=== PATIENT | female | born 1980 | race Caucasian/White ===

== ENCOUNTER 2016-10-17 05:28 | Emergency (ER) | payer SELFPAY ==
[2016-10-17 06:01] VITALS: BMI 20.1
[2016-10-17] MEDS ORDERED: ACETAMINOPHEN 325 MG TABLET (FP) ONE (07:34)
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
[2016-10-17] MEDS ORDERED: ACETAMINOPHEN 325 MG TABLET (FP) PO ONE (07:39)
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
[2016-10-17 10:10] VITALS: BP 126/73; PULSE 90; TEMP 97.9
== END 2016-10-17 10:30 | disposition home or self-care (01) ==
LOC: JER 05:28
DX: S00.511A Abrasion of lip, initial encounter (principal); Y04.2XXA Assault by strike against or bumped into by another person, initial encounter; Y93.89 Activity, other specified; Y92.59 Other trade areas as the place of occurrence of the external cause; Y07.03 Male partner, perpetrator of maltreatment and neglect
CPT/HCPCS: 99284-25

== ENCOUNTER 2017-06-09 12:10 | Inpatient (IN) | payer OTHER ==
[2017-06-09] MEDS ORDERED: AMPICILLIN SODIUM 2 GM VIAL ONE (12:53)
[2017-06-09] MEDS: DEXTROSE 5%-LACTATED RINGERS 1,000 ML IV SCH ×2 (13:00→18:29)
[2017-06-09] MEDS ORDERED: AMPICILLIN - 2 GM in SODIUM CHLORIDE 100 ML IVPB ONE (13:00)
[2017-06-09 13:23] VITALS: BMI 21.0
[2017-06-09 14:16] LABS: BASO % 0.2 % (0-2.0); EOS % 0.7 % (0-4.5); HEMOGLOBIN 9.5 GM/dL (10.7-15.3); LYMPH % 6.5 % (8-40); MCH 26.4 pg (25.7-33.7); MCHC 32.8 g/dl (32.0-36.0); MEAN CELL VOLUME 80.5 fl (80-96); MEAN PLT VOLUME 9.4 fl (7.5-11.1); MONO % 4.9 % (3.8-10.2); NEUT % 87.7 % (42.8-82.8); PLATELET COUNT 217 K/MM3 (134-434); RDW 13.2 % (11.6-15.6); WHITE BLOOD COUNT 13.8 K/mm3 (4.0-10.0)
--- NOTE | 2017-06-09 14:26 | HP ---
Past Medical History - Primary Care Physician PCP:: Isabell Hernández - Admission Chief Complaint: 37 Yrs , 35 weeks gestation admitted , due to SPROM since 7.00PM 06/08/17 .. no c/o onset of any labor pains. Pt is drop in History of Present Illness: [facility] in [place] . pt came to [place] 2 weeks ago . she states she went to [employer] for interview, she has not been seen by physician . pt has not brought any records with her as per patient, her course was unevemtful Wt gain 8 lbs History Source: Patient, Medical Record Limitations to Obtaining History: No Limitations - Past Medical History CERTIFIED RECREATIONAL THERAPIST: No: Migraine, Seizure Cardiovascular: No: HTN Pulmonary: No: Asthma Gastrointestinal: No: Gastritis, GERD Renal/: Yes: Other (denies) ...: 2 ...Para: 1 (1 12/07/1999 at [facility]) ...Term: 1 ...LMP: 10/01/16 ... Weeks Gestation by Dates: 35.4 ...EDC by Dates: 07/09/17 ...EDC by Sono: 07/11/17 Heme/Onc: Yes: Anemia Infectious Disease: Yes: Other (denies) Psych: Yes: Other (declines any mental disorders) Rheumatology: Yes: Gout, Other - Past Surgical History Past Surgical History: Yes: None Hx Myomectomy: No Hx Transabdominal Cerclage: No - Smoking History Smoking history: Former smoker Have you smoked in the past 12 months: Yes Aproximately how many cigarettes per day: 3 If you are a former smoker, when did you quit?: 3 MONTHS AGO - Alcohol/Substance Use Hx Alcohol Use: No History of Substance Use: reports: None Home Medications - Allergies Allergies/Adverse Reactions: Allergies Allergy/AdvReac Type Severity Reaction Status Date / Time No Known Allergies Allergy Verified 06/09/17 13:02 - Home Medications Home Medications: Ambulatory Orders NK [No Known Home Medication] 10/17/16 Physical Exam - Maternity Vital Signs: Vital Signs Temperature 98.3 F 06/09/17 13:00 Pulse Rate 89 06/09/17 13:00 Respiratory Rate 20 06/09/17 13:00 Blood Pressure 115/68 06/09/17 13:00 O2 Sat by Pulse Oximetry (%) Constitutional: Yes: Well Nourished Eyes: Yes: WNL HENT: Yes: WNL, Normocephalic Neck: Yes: WNL, Trachea Midline Cardiovascular: Yes: WNL, Regular Rate and Rhythm Lungs: Clear to auscultation Breast(s): Yes: WNL - Abdominal Exam/OB Fundal Height: 34 Number of Fetuses: Single Presentation: Vertex (exam at 12.45 PM) Contractions: Yes Regularity: Irregular Intensity: Unaware Monitor Mode: External Heart Rate (range): 155 Heart Rate Location: [facility] Category: I Accelerations: Uniform - Vaginal Exam/OB Vaginal Bleediing: No Speculum Exam: Yes (gross leaking ) Dilatation (cm): close Effacement (%): unefface Amniotic Membrane Status: Ruptured Nitrazine Test: Positive Amniotic Fluid: Yes: Clear Presentation: Vertex/Position Station: -3 - Physical Exam Musculoskeletal: Yes: WNL Extremities: Yes: WNL. No: Calf Tenderness Edema: No Integumentary: Yes: Tattoos Deep Tendon Reflex Grade: Normal +2 ...Motor Strength: WNL Psychiatric: Yes: WNL, Alert, Oriented - Labs Lab Results: CBC, BMP 06/09/17 13:42 Laboratory Tests 06/09/17 06/09/17 06/09/17 13:42 13:42 13:42 PT with INR 10.60 INR 0.94 PTT (Actin FS) 24.6 L Sodium 140 Potassium 4.2 Chloride 107 Carbon Dioxide 25 BUN 8 Creatinine 0.5 L Random Glucose 85 Total Bilirubin 0.2 AST 14 L ALT 15 Alkaline Phosphatase 402 H Total Protein 5.6 L Albumin 2.2 L RPR Titer Nonreactive HIV 1&2 Antibody Screen Negative HIV P24 Antigen Negative Problem List - Problems (1) 35 weeks gestation of Code(s): Z3A.35 - 35 WEEKS GESTATION OF (2) SPROM (prolonged spontaneous rupture of membranes) Code(s): O42.90 - LISSETT ROM, 7TH0 BETW RUPT & ONST LABR, UNSP WEEKS OF GEST (3) with care elsewhere, antepartum Code(s): Z34.90 - ENCNTR FOR SUPRVSN OF NORMAL , UNSP, UNSP TRIMESTER (4) Anemia Code(s): D64.9 - ANEMIA, UNSPECIFIED Qualifiers: Anemia type: iron deficiency Iron deficiency anemia type: inadequate dietary iron intake Qualified Code(s): D50.8 - Other iron deficiency anemias Assessment/Plan 37 yrs ( AMA ) , 35 week s, sprom ( >24 hrs ).drop in , no labor Plan : sono gbs prophylaxis with Iv ampicillin Iv fluids Pitocin Induction/augmentation PRN vaginal delivery trial Sono report : 35.3 weeks ,vx, MELQUIADES 9.1, , EFW 2468 gm =5'7" ( 35 %tile) , BPp4/8 BM-0, FM-0, FT-2, AFV-2
[2017-06-09 14:30] LABS: INR 0.94 (0.82-1.09); PROTHROMBIN TIME (PATIENT) 10.6 SEC (9.98-11.88)
[2017-06-09 14:33] LABS: ACTIVATED PTT 24.6 SECONDS (26.9-34.4)
[2017-06-09 14:39] LABS: ALBUMIN 2.2 g/dl (3.4-5.0); ANION GAP 8 (8-16); BILIRUBIN,TOTAL 0.2 mg/dL (0.2-1.0); BLOOD UREA NITROGEN 8 mg/dL (7-18); CALCIUM 7.8 mg/dL (8.5-10.1); CHLORIDE 107 mmol/L (98-107); CO2 25 mmol/L (21-32); CREATININE 0.5 mg/dL (0.55-1.02); GLUCOSE,RANDOM 85 mg/dL (74-106); POTASSIUM 4.2 mmol/L (3.5-5.1); SGOT/AST 14 U/L (15-37); SGPT/ALT 15 U/L (12-78); SODIUM 140 mmol/L (136-145); TOT PROT 5.6 g/dl (6.4-8.2)
[2017-06-09 14:40] LABS: ALK PHOS 402 U/L (45-117)
[2017-06-09 15:28] LABS: RPR NONREACTIVE (NONREACTIVE)
[2017-06-09] MEDS ORDERED: AMPICILLIN SODIUM 1 GM VIAL ONE ×2 (16:52→20:22)
--- NOTE | 2017-06-09 18:27 | PN ---
Progress Note, Labor Vaginal Exam #1 Labor Exam Date: 06/09/17 Labor Exam Time: 18:20 Heart Rate (range): 170 Dilatation: 1 Effacement (%): 70 Amniotic Membrane Status: Ruptured Presentation: Vertex/Position Station: -1 Remarks: fhr 160-170 , , cat-2 uc 2-3 min pt c/o pain Selected Entries 06/09/17 06/09/17 06/09/17 13:16 16:00 17:00 Temperature 99.3 F 99.8 F H Pulse Rate 89 94 H Blood Pressure 111/76 104/75 Weight 115 lb 6.20 PM Temp 99.5 Vaginal Exam #2 Labor Exam Date: 06/09/17 Labor Exam Time: 19:00 Heart Rate (range): 160 Dilatation: 3 Effacement (%): 80 Amniotic Membrane Status: Ruptured Presentation: Vertex/Position Station: 0 Remarks: variable decel uc 2 min Vaginal Exam #3 Labor Exam Date: 06/09/17 Labor Exam Time: 20:01 Heart Rate (range): 160-170 Dilatation: 6 Effacement (%): 80 Amniotic Membrane Status: Ruptured Presentation: Vertex/Position Station: 0 Remarks: fhr cat-2 , sometimes variable decel uc 1-2 min temp 98.6 pt did not receive stadol & phenrgan, plan epidural labor analgesia Vaginal Exam #4 Labor Exam Date: 06/09/17 Labor Exam Time: 21:20 Heart Rate (range): 170 Dilatation: 9 Effacement (%): 100 Amniotic Membrane Status: Ruptured Presentation: Vertex/Position Station: +2 Remarks: fhr cat-2, variable decel uc 1-2 min pt pushing Selected Entries 06/09/17 18:27 Temperature 99.5 F Pulse Rate 90 Blood Pressure 116/68 Vaginal Exam #5 Labor Exam Date: 06/09/17 Labor Exam Time: 21:30 Heart Rate (range): 170 Dilatation: 10 Effacement (%): 100 Amniotic Membrane Status: Ruptured Presentation: Vertex/Position Station: +2 Remarks: fhr cat-2 uc q 1.2 min pushing
[2017-06-09] MEDS ORDERED: TUBERCULIN PPD 5 TU/0.1ML SYRINGE (IN PATIENT USE ONLY) ID ONE (18:30)
[2017-06-09] MEDS ORDERED: BUTORPHANOL TARTRATE 1 MG/ML VIAL IVPUSH ONE (19:00)
[2017-06-09] MEDS ORDERED: PROMETHAZINE HCL 25 MG/1 ML VIAL IVPUSH ONE (19:00)
[2017-06-09] MEDS ORDERED: ELECTROLYTE-148 SOLN 1,000 ML IV SCH (20:15)
[2017-06-09 20:19] LABS: URINE AMPHETAMINES NEGATIVE ng/ml (CUTOFF=500)
[2017-06-09 20:20] LABS: COCAINE, UR POSITIVE ng/ml (CUTOFF=300); METHADONE, UR NEGATIVE ng/ml (CUTOFF=300); OPIATES, URI NEGATIVE ng/ml (CUTOFF=300); PHENCYCLIDINE,URINE NEGATIVE ng/ml (CUTOFF=25); URINE BARBITURATES NEGATIVE ng/ml (CUTOFF=200); URINE BENZODIAZEPINES NEGATIVE ng/ml (CUTOFF=200)
[2017-06-09] MEDS ORDERED: BUTORPHANOL TARTRATE 1 MG/ML VIAL ONE (20:22)
[2017-06-09] MEDS ORDERED: PROMETHAZINE HCL 25 MG/1 ML VIAL ONE (20:23)
[2017-06-09] MEDS: AMPICILLIN - 1 GM in SODIUM CHLORIDE 100 ML IVPB SCH (20:30)
[2017-06-09] MEDS ORDERED: OXYTOCIN 20 UNITS in 0.9% NS 20 UNIT/1,000 ML INFUS.BAG IV ONE ×2 (21:22→22:32)
[2017-06-09 22:11] LABS: VENOUS PC02 41.7 mmHg (38-52); VENOUS PH 7.31 (7.32-7.42); VENOUS PO2 22.1 mmHg (28-48)
[2017-06-09] MEDS ORDERED: IBUPROFEN 600 MG TABLET (FP) PO PRN (22:35)
[2017-06-09] MEDS ORDERED: ACETAMINOPHEN 325 MG TABLET (FP) PO PRN (22:35)
[2017-06-09] MEDS ORDERED: oxyCODONE HCL 5 MG TABLET PO PRN (22:35)
[2017-06-09] MEDS ORDERED: BISACODYL 10 MG SUPP.RECT RC PRN (22:35)
[2017-06-09] MEDS ORDERED: BENZOCAINE 28 GM HEMORRHOIDAL OINTMENT TP PRN (22:35)
[2017-06-09] MEDS ORDERED: BENZOCAINE 20% 57 GM BOTTLE TP PRN (22:35)
[2017-06-09] MEDS ORDERED: WITCH HAZEL 50% (TUCKS) 40 PAD/JAR PAD TP PRN (22:35)
[2017-06-09] MEDS ORDERED: METHYLERGONOVINE MALEATE 0.2 MG/1 ML AMP IM PRN (22:35)
--- NOTE | 2017-06-09 22:43 | PN ---
Delivery - Delivery Vaginal Delivery: No Problems, Spontaneous (baby delievered in Vx Keller position , immediate suction oral & nasal was done , afluid was meconium stained , cord around neckx1 was noted , untangled before delivery of shoulder . perineum & vagina was intact) Episiotomy/Laceration: None EBL (cc): 300 Delivery, Single - Stages of Labor Date 1st Stage Initiatied: 06/09/17 Time 1st Stage Initiated: 13:00 Date 2nd Stage Initiated: 06/09/17 Time 2nd Stage Initiated: 21:30 Date of Delivery: 06/09/17 Time of Delivery: 21:38 Date Placenta Delivered: 06/09/17 Time Placenta Delivered: 21:42 Placenta: Yes: Spontaneous, Uterine Exploration - Condition of Security Checker/Plaster Whittler Present: Yes Name: Yunior Hamilton Infant Gender: Male Weight: 5 lb 3 oz Position: Left, OA Total Hours ROM (Hrs/Mins): 26hrs 42 min - 1 Minute Total Score: 6 5 Minutes Total Score: 8 - [place] Feeding Plan Initial Plan: Exclusive throughout hospitalization Remarks - Remarks Remarks: 37 yrs ( AMA ) , , drop in , ? pncare in [place], no records presented with [facility], prolonged srom since 06/08/17 7.00 pm pt went into spontaneous labor Iv Ampicillin 3 doses were given for prophylaxis Intrapartum tachycardia 160-170 noted , periodically variable decels stadol 1 mg + phenergan 25 mg ivpb was given once for labor analgesia urine drug screen positive for cocaine Baby was transferred to NICU
[2017-06-09] MEDS ORDERED: OXYTOCIN 20 UNITS in 0.9% NS 20 UNIT/1,000 ML INFUS.BAG IV SCH (22:45)
[2017-06-10] MEDS: AMPICILLIN - 1 GM in SODIUM CHLORIDE 100 ML IVPB SCH ×2 (01:06→05:53)
[2017-06-10 06:07] LABS: HBsAG SCREEN Negative (Negative); RUBELLA IgG ANTIBODY 4.52 index (Immune >0.99)
[2017-06-10 08:03] LABS: HEMATOCRIT 27.5 % (32.4-45.2); HEMOGLOBIN 9.1 GM/dL (10.7-15.3); MCH 26.5 pg (25.7-33.7); MEAN CELL VOLUME 80.3 fl (80-96); MEAN PLT VOLUME 9.7 fl (7.5-11.1); PLATELET COUNT 205 K/MM3 (134-434); RBC 3.42 M/mm3 (3.60-5.2); RDW 12.9 % (11.6-15.6)
--- NOTE | 2017-06-10 08:05 | PN ---
Post Progress Note - Subjective Subjective: c/o cramps Post Day: 1 Type of Delivery: Vital Signs: Vital Signs Temperature 98.6 F 06/10/17 04:00 Pulse Rate 81 06/10/17 04:00 Respiratory Rate 20 06/10/17 04:00 Blood Pressure 104/64 06/10/17 04:00 O2 Sat by Pulse Oximetry (%) 98 06/09/17 22:30 Breast Exam: Yes: Soft. No: Engorged (not BF ) Uterus: Yes: Fundus Firm, Fundus below umbilicus Lochia: Yes: Rubra Lochia, amount: Moderate Extremities: Yes: Calves non-tender Perineum: Yes: Intact Activity: Ambulating - Labs Labs: CBC WBC 13.8 K/mm3 (4.0-10.0) H 06/09/17 13:42 RBC 3.60 M/mm3 (3.60-5.2) 06/09/17 13:42 Hgb 9.5 GM/dL (10.7-15.3) L 06/09/17 13:42 Hct 29.0 % (32.4-45.2) L 06/09/17 13:42 MCV 80.5 fl (80-96) 06/09/17 13:42 MCH 26.4 pg (25.7-33.7) 06/09/17 13:42 MCHC 32.8 g/dl (32.0-36.0) 06/09/17 13:42 RDW 13.2 % (11.6-15.6) 06/09/17 13:42 Plt Count 217 K/MM3 (134-434) 06/09/17 13:42 MPV 9.4 fl (7.5-11.1) 06/09/17 13:42 Neutrophils % 87.7 % (42.8-82.8) H 06/09/17 13:42 Lymphocytes % 6.5 % (8-40) L 06/09/17 13:42 Monocytes % 4.9 % (3.8-10.2) 06/09/17 13:42 Eosinophils % 0.7 % (0-4.5) 06/09/17 13:42 Basophils % 0.2 % (0-2.0) 06/09/17 13:42 Laboratory Tests 06/09/17 19:15 Cocaine Screen Positive Problem List - Problems (1) 35 weeks gestation of Code(s): Z3A.35 - 35 WEEKS GESTATION OF (2) SPROM (prolonged spontaneous rupture of membranes) Code(s): O42.90 - LISSETT ROM, 7TH0 BETW RUPT & ONST LABR, UNSP WEEKS OF GEST (3) with care elsewhere, antepartum Code(s): Z34.90 - ENCNTR FOR SUPRVSN OF NORMAL , UNSP, UNSP TRIMESTER (4) Anemia Code(s): D64.9 - ANEMIA, UNSPECIFIED Qualifiers: Anemia type: iron deficiency Iron deficiency anemia type: inadequate dietary iron intake Qualified Code(s): D50.8 - Other iron deficiency anemias (5) Vaginal delivery Code(s): O80 - ENCOUNTER FOR FULL-TERM UNCOMPLICATED DELIVERY Assessment/Plan s/p vag deli stable, anemia , cocaine pos in urine Plan ct pp care social work administrator consult requested baby in NICU
[2017-06-10 08:26] LABS: WHITE BLOOD COUNT 34.5 K/mm3 (4.0-10.0)
[2017-06-10 09:11] LABS: PLATELET ESTIMATE ADEQUATE
[2017-06-10] MEDS: PRENATAL VITAMINS W/ FOLIC ACID TABLET (FP) PO SCH (09:14)
[2017-06-10] MEDS: FERROUS SO4 325 MG TABLET (FP) PO SCH ×2 (09:14→16:54)
[2017-06-10] MEDS ORDERED: SENNOSIDES/DOCUSATE COMBO (SENNA PLUS) TABLET (UD) PO PRN (22:00)
[2017-06-11] MEDS: FERROUS SO4 325 MG TABLET (FP) PO SCH (08:25)
[2017-06-11 08:36] LABS: BASO % 0.3 % (0-2.0); EOS % 1.1 % (0-4.5); HEMATOCRIT 26.3 % (32.4-45.2); HEMOGLOBIN 8.6 GM/dL (10.7-15.3); LYMPH % 7.1 % (8-40); MCH 26.3 pg (25.7-33.7); MCHC 32.8 g/dl (32.0-36.0); MEAN CELL VOLUME 80.1 fl (80-96); MEAN PLT VOLUME 9.5 fl (7.5-11.1); MONO % 4.7 % (3.8-10.2); NEUT % 86.8 % (42.8-82.8); PLATELET COUNT 209 K/MM3 (134-434); RBC 3.28 M/mm3 (3.60-5.2); RDW 13.1 % (11.6-15.6); WHITE BLOOD COUNT 25.6 K/mm3 (4.0-10.0)
[2017-06-11 09:06] VITALS: BP 109/64; PULSE 77; TEMP 98.7
[2017-06-11] MEDS: PRENATAL VITAMINS W/ FOLIC ACID TABLET (FP) PO SCH (09:18)
--- NOTE | 2017-06-11 10:23 | PN ---
Post Progress Note - Subjective Subjective: Pt without complaints. Bleeding light. Voiding Post Day: 2 Type of Delivery: Vital Signs: Vital Signs Temperature 98.7 F 06/11/17 07:20 Pulse Rate 77 06/11/17 07:20 Respiratory Rate 20 06/11/17 07:20 Blood Pressure 109/64 06/11/17 07:20 O2 Sat by Pulse Oximetry (%) 98 06/09/17 22:30 Uterus: Yes: Fundus Firm Abdomen/GI: Yes: Abdomen soft Lochia, amount: Small Extremities: Yes: Calves non-tender Activity: Ambulating - Labs Labs: CBC WBC 25.6 K/mm3 (4.0-10.0) H 06/11/17 07:45 RBC 3.28 M/mm3 (3.60-5.2) L 06/11/17 07:45 Hgb 8.6 GM/dL (10.7-15.3) L 06/11/17 07:45 Hct 26.3 % (32.4-45.2) L 06/11/17 07:45 MCV 80.1 fl (80-96) 06/11/17 07:45 MCH 26.3 pg (25.7-33.7) 06/11/17 07:45 MCHC 32.8 g/dl (32.0-36.0) 06/11/17 07:45 RDW 13.1 % (11.6-15.6) 06/11/17 07:45 Plt Count 209 K/MM3 (134-434) 06/11/17 07:45 MPV 9.5 fl (7.5-11.1) 06/11/17 07:45 Neutrophils % 86.8 % (42.8-82.8) H 06/11/17 07:45 Neutrophils % (Manual) 72.0 % (42.8-82.8) 06/10/17 07:00 Band Neutrophils % 18.0 % 06/10/17 07:00 Lymphocytes % 7.1 % (8-40) L 06/11/17 07:45 Lymphocytes % (Manual) 4.0 % (8-40) L 06/10/17 07:00 Monocytes % 4.7 % (3.8-10.2) 06/11/17 07:45 Monocytes % (Manual) 4 % (3.8-10.2) 06/10/17 07:00 Eosinophils % 1.1 % (0-4.5) 06/11/17 07:45 Basophils % 0.3 % (0-2.0) 06/11/17 07:45 Metamyelocytes 2 % (0-2) 06/10/17 07:00 Platelet Estimate Adequate 06/10/17 07:00 Platelet Comment No clumping noted 06/10/17 07:00 Problem List - Problems (1) Vaginal delivery Assessment/Plan: Pt PPD#2 s/p wbc elevated, but has decreased. Per Dr. Hernández, pt to be sent home with antibiotics plan for f/u at [facility] in 2 weeks pnv if decides to breast feed pelvic rest x 6 weeks stable for discharge home Dr. Hunter Code(s): O80 - ENCOUNTER FOR FULL-TERM UNCOMPLICATED DELIVERY
--- NOTE | 2017-06-11 23:04 | DS ---
Physical Exam-STORY READER Vital Signs: Vital Signs Temperature 98.7 F 06/11/17 07:20 Pulse Rate 77 06/11/17 07:20 Respiratory Rate 20 06/11/17 07:20 Blood Pressure 109/64 06/11/17 07:20 O2 Sat by Pulse Oximetry (%) 98 06/09/17 22:30 Constitutional: Yes: Other (asymptomatic,afebrile.) Eyes: Yes: WNL HENT: Yes: WNL Neck: Yes: WNL Cardiovascular: Yes: WNL Respiratory: Yes: WNL Gastrointestinal: Yes: WNL ...Rectal Exam: Yes: WNL Renal/: Yes: WNL, Other (no urine symptoms). No: CVA Tenderness - Left, CVA Tenderness - Right ....Post : Yes: Uterus firm, Uterus non-tender, Moderate lochia rubra (no odor) Breast(s): Yes: WNL, Other (not bf) Musculoskeletal: Yes: WNL Extremities: Yes: WNL. No: Calf Tenderness Edema: No Integumentary: Yes: Tattoos Neurological: Yes: WNL, Alert, Oriented ...Motor Strength: WNL Psychiatric: Yes: WNL, Alert, Oriented Labs: CBC, BMP 06/11/17 07:45 06/09/17 13:42 Delivery - Delivery Vaginal Delivery: No Problems, Spontaneous (baby delievered in Vx Gutierrez position , immediate suction oral & nasal was done , afluid was meconium stained , cord around neckx1 was noted , untangled before delivery of shoulder . perineum & vagina was intact) Type of Anesthesia: None Episiotomy/Laceration: None EBL (cc): 300 Delivery, Single - Stages of Labor Date 1st Stage Initiatied: 06/09/17 Time 1st Stage Initiated: 13:00 Date 2nd Stage Initiated: 06/09/17 Time 2nd Stage Initiated: 21:30 Date of Delivery: 06/09/17 Time of Delivery: 21:38 Time Placenta Delivered: 21:42 Placenta: Yes: Spontaneous, Uterine Exploration - Condition of [place] Worker/Clinical Informatics Spec Present: Yes Name: Yunior Hamilton Gender: Male Weight: 5 lb 3 oz Position: Left, OA Total Hours ROM (Hrs/Mins): 26hrs 42 min - 1 Minute Total Score: 6 5 Minutes Total Score: 8 - [place] Feeding Plan Initial Plan: Exclusive throughout hospitalization Remarks - Remarks Remarks: 37 yrs ( AMA ) , , drop in , ? pncare in [place], no records presented with [facility], prolonged srom since 06/08/17 7.00 pm pt went into spontaneous labor Iv Ampicillin 3 doses were given for prophylaxis Intrapartum tachycardia 160-170 noted , periodically variable decels stadol 1 mg + phenergan 25 mg ivpb was given once for labor analgesia urine drug screen positive for cocaine Baby was transferred to NICU pp wbc count high 34 on & bands 18, 06/10 ,repeat count on 06/11 25 pt is asymptomatic ,still prpphylactc po Augmentin bid x7 days is given Anemia is counselled infant doing better in nursery. social work job titles & cps is involved. discharge 06/11/17 Discharge Summary Reason For Visit: SPONTANEOUS RUPTURE OF MEMBRANE Condition: Stable - Instructions Diet, Activity, Other Instructions: Post Instructions DIET: Continue good diet high in protein, calcium, and iron rich foods. Drink at least eight (8) glasses of water daily in addition to other fluids. ___ Regular diet MEDICATIONS: Continue vitamins and iron as previously directed. Motrin and Tylenol may be taken for minor discomfort. ACTIVITY: Mild to moderate exercise may be started in two (2) weeks. Take frequent rest periods. Resume normal activity after six (6) week check up. WOUND CARE OF OPERATIVE SITE: Continue use of perineal bottle until vaginal discharge stops. Keep area clean. Shower daily. Keep abdominal wound dry. Report any drainage or redness to physician. Tub baths, tampons and douches are not permitted for [address] Bottle feeding BREAST CARE: (For those that are not breast feeding): If engorgement occurs: Wear tight fitting bra. Take Tylenol or Motrin for pain. Apply cold packs (ice in bags to each breast ) FAMILY PLANNING: There are many control alternatives to pursue and they should be discussed at your first office visit. You may resume sexual activity after your six (6) week check up. (Remember, breast feeding is not a contraceptive) NEXT PHYSICIAN APPOINTMENT: Be certain to call for a two (2) week appointment. Call [phone] for appt. Call for Drug Rehab Call Clinic or got to Emergency Dept if you have any of the following: Heavy vaginal bleeding Painful urination Leg pain Unusual odor noted to vaginal bleeding High fever Red streaking noted on breast Referrals: Isabell Hernández MD [Staff Physician] - Disposition: HOME - Home Medications Comprehensive Discharge Medication List: Ambulatory Orders Acetaminophen [Tylenol .Regular Strength -] 650 mg PO Q3H PRN tablet 06/10/17 Ferrous Sulfate [Feosol] 325 mg PO BIDWM #60 tab 06/10/17 Ibuprofen [Motrin -] 200 mg PO Q4H PRN #0 tablet 06/10/17 Vitamins (Sjr) - 1 tab PO DAILY #30 tablet 06/10/17 Amoxicillin/Potassium Clav [Augmentin 875-125 Tablet] 1 each PO BID #20 tablet 06/11/17
== END 2017-06-11 12:50 | disposition home or self-care (01) | DRG 560 ==
LOC: JDEL 12:10 → JLDR 12:45 → J3W 06-10 00:44
PROVIDERS: ADMIT Obstetrics & Gynecology; ATTEND Obstetrics & Gynecology
PROC: 10E0XZZ Delivery of Products of Conception, External Approach (ICD-10-PCS; principal; 2017-06-09)
DX: O60.14X0 Preterm labor third trimester with preterm delivery third trimester, not applicable or unspecified (principal); O99.323 Drug use complicating pregnancy, third trimester; F14.10 Cocaine abuse, uncomplicated; O77.0 Labor and delivery complicated by meconium in amniotic fluid; O69.81X0 Labor and delivery complicated by cord around neck, without compression, not applicable or unspecified; O99.013 Anemia complicating pregnancy, third trimester; D64.9 Anemia, unspecified; O26.893 Other specified pregnancy related conditions, third trimester; Z87.891 Personal history of nicotine dependence; Z3A.35 35 weeks gestation of pregnancy; Z37.0 Single live birth
CPT/HCPCS: 36415; 59409; 80053; 80307; 82803; 85025; 85610; 85730; 86593; 86762; 86850; 86900; 86901; 87340; 87389; 88307-TC

== ENCOUNTER 2018-02-15 00:45 | Emergency (ER) | payer OTHER ==
[2018-02-15 01:18] VITALS: BMI 20.1
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
[2018-02-15] MEDS ORDERED: IBUPROFEN 600 MG TABLET (FP) PO ONE ×2 (03:14→04:03)
[2018-02-15 04:40] LABS: HCG,QUALITATIVE URINE Negative; URINE APPEARANCE SLCLOUDY; URINE BILIRUBIN NEGATIVE (<2.0 mg/dL); URINE COLOR LTYELLOW; URINE GLUCOSE (UA) NEGATIVE (NEGATIVE); URINE KETONE 1+ (NEGATIVE); URINE LEUK ESTERASE NEGATIVE (NEGATIVE); URINE NITRITE NEGATIVE (NEGATIVE); URINE PROTEIN NEGATIVE (NEGATIVE); URINE UROBILINOGEN NEGATIVE mg/dL (0.2-1.0)
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
[2018-02-15 12:03] VITALS: BP 117/78; PULSE 81; TEMP 97.9
== END 2018-02-15 12:15 | disposition home or self-care (01) ==
LOC: JER 00:45
DX: S09.90XA Unspecified injury of head, initial encounter (principal); T76.11XA Adult physical abuse, suspected, initial encounter; Y04.2XXA Assault by strike against or bumped into by another person, initial encounter; Y93.9 Activity, unspecified; Y92.9 Unspecified place or not applicable; Y07.03 Male partner, perpetrator of maltreatment and neglect
CPT/HCPCS: 70450-TC; 70486-TC; 71046-TC-FY; 71101-TC-FY; 72125-TC; 81003; 84703; 99283-25

== ENCOUNTER 2018-04-06 19:04 | Inpatient (IN) | payer OTHER ==
[2018-04-06 19:43] VITALS: BMI 18.3
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
[2018-04-06] MEDS ORDERED: MAGNESIUM HYDROX 2400MG/30ML ORAL SUSPENSION 30 ML CUP PO PRN (20:52)
[2018-04-06] MEDS ORDERED: LOPERAMIDE HCL 2 MG CAPSULE PO PRN (20:52)
[2018-04-06] MEDS ORDERED: P-EPHED 60MG/TRIPROLIDI 2.5MG TABLET PO PRN (20:52)
[2018-04-06] MEDS ORDERED: NICOTINE POLACRILEX 2 MG GUM BC PRN (20:52)
[2018-04-06] MEDS ORDERED: hydrOXYzine PAMOATE 50 MG CAPSULE (FP) PO PRN (20:52)
[2018-04-06] MEDS ORDERED: guaiFENesin/D-METHORPHAN HB 10 ML UNIT-DOSE CUPS PO PRN (20:52)
[2018-04-06] MEDS ORDERED: MAG HYDROX/AL HYDROX/SIMETH 30 ML UNIT-DOSE CUP PO PRN (20:52)
[2018-04-06] MEDS ORDERED: MENTHOL/PHENOL 1 EACH UD MM PRN (20:52)
[2018-04-06] MEDS ORDERED: MAGNESIUM CITRATE 300 ML BOTTLE PO PRN (20:52)
[2018-04-06] MEDS ORDERED: ACETAMINOPHEN 325 MG TABLET (FP) PO PRN (20:52)
[2018-04-06] MEDS ORDERED: chlordiazePOXIDE HCL 25 MG CAPSULE PO PRN (20:52)
[2018-04-06] MEDS ORDERED: IBUPROFEN 400 MG TABLET (FP) PO PRN (20:52)
[2018-04-06] MEDS: THIAMINE HCL 100 MG TABLET (FP) PO SCH (21:56)
[2018-04-06] MEDS: chlordiazePOXIDE HCL 25 MG CAPSULE PO SCH (22:00)
[2018-04-06 23:01] LABS: URINE APPEARANCE CLEAR; URINE BILIRUBIN NEGATIVE (<2.0 mg/dL); URINE COLOR YELLOW; URINE GLUCOSE (UA) NEGATIVE (NEGATIVE); URINE KETONE 1+ (NEGATIVE); URINE LEUK ESTERASE NEGATIVE (NEGATIVE); URINE NITRITE NEGATIVE (NEGATIVE); URINE PROTEIN 2+ (NEGATIVE)
[2018-04-06 23:10] LABS: EPI CELLS RARE /HPF (FEW); URINE HYALINE CAST 1 /lpf; URINE MUCUS RARE
[2018-04-07] MEDS: chlordiazePOXIDE HCL 25 MG CAPSULE PO SCH ×4 (05:19→22:35)
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
[2018-04-07 10:02] LABS: HEMATOCRIT 39.2 % (32.4-45.2); HEMOGLOBIN 13.1 GM/dL (10.7-15.3); MCHC 33.5 g/dl (32.0-36.0); MEAN CELL VOLUME 83.5 fl (80-96); MEAN PLT VOLUME 9.2 fl (7.5-11.1); PLATELET COUNT 237 K/MM3 (134-434); RBC 4.69 M/mm3 (3.60-5.2); RDW 13.5 % (11.6-15.6); WHITE BLOOD COUNT 3.8 K/mm3 (4.0-10.0)
[2018-04-07 10:13] LABS: ALBUMIN 3.4 g/dl (3.4-5.0); ALK PHOS 54 U/L (45-117); ANION GAP 10 MMOL/L (8-16); BILIRUBIN,TOTAL 0.1 mg/dL (0.2-1); BLOOD UREA NITROGEN 11 mg/dL (7-18); CALCIUM 7.8 mg/dL (8.5-10.1); CHLORIDE 106 mmol/L (98-107); CO2 27 mmol/L (21-32); CREATININE 0.6 mg/dL (0.55-1.3); GLUCOSE,RANDOM 95 mg/dL (74-106); POTASSIUM 3.1 mmol/L (3.5-5.1); SGOT/AST 10 U/L (15-37); SGPT/ALT 11 U/L (13-61); SODIUM 142 mmol/L (136-145); TOT PROT 6.2 g/dl (6.4-8.2)
[2018-04-07] MEDS: PRENATAL VITAMINS W/ FOLIC ACID TABLET (FP) PO SCH (10:35)
[2018-04-07] MEDS: NICOTINE 14 MG/24 HOURS TOPICAL PATCH TD SCH (10:45)
--- NOTE | 2018-04-07 11:36 | EKG ---
Test Reason : Blood Pressure : / mmHG Vent. Rate : 083 BPM Atrial Rate : 083 BPM P-R Int : 094 ms QRS Dur : 082 ms QT Int : 384 ms P-R-T Axes : -06 074 061 degrees QTc Int : 451 ms SINUS RHYTHM WITH SHORT [place] OTHERWISE NORMAL ECG NO PREVIOUS ECGS AVAILABLE Confirmed by CT HA, ALAINA ([id number]) on 04/07/2018 11:36:48 AM Referred By: Confirmed By:ALAINA FOFANA MD
[2018-04-07] MEDS ORDERED: ONDANSETRON *ODT* 4 MG TABLET SL PRN (14:00)
--- NOTE | 2018-04-07 14:03 | PN ---
S CIWA - CIWA Score Nausea/Vomitin Muscle Tremors: None Anxiety: 0-No Anxiety, at Ease Agitation: 0-Normal Activity Paroxysmal Sweats: 3 Orientation: 0-Oriented Tacttile Disturbances: 2-Mild Itch/Numbness/Burn Auditory Disturbances: 1-Very Mild Visual Disturbances: 3-Moderate Sensitivity Headache: 0-None Present CIWA-Ar Total Score: 12 [facility] Progress Note (SOAP) Subjective: Interrupted Sleep, Sweating, Nausea, Body Aches. Objective: PATIENT A & O X 3, OBSERVED AMBULATING ON UNIT. IN NO ACUTE DISTRESS. 04/07/18 14:02 Vital Signs Temperature 98.5 F 04/07/18 13:24 Pulse Rate 120 H 04/07/18 13:24 Respiratory Rate 18 04/07/18 13:24 Blood Pressure 103/70 04/07/18 13:24 O2 Sat by Pulse Oximetry (%) Laboratory Tests 04/06/18 04/07/18 04/07/18 21:41 07:00 07:00 WBC RBC Hgb Hct MCV MCH MCHC RDW Plt Count MPV Sodium 142 Potassium 3.1 L Chloride 106 Carbon Dioxide 27 Anion Gap 10 BUN 11 Creatinine 0.6 Creat Clearance w eGFR > 60 Random Glucose 95 Calcium 7.8 L Total Bilirubin 0.1 L AST 10 L ALT 11 L Alkaline Phosphatase 54 Total Protein 6.2 L Albumin 3.4 Urine Color Yellow Urine Appearance Clear Urine pH 6.0 Ur Specific [employer] 1.023 Urine Protein 2+ H Urine Glucose (UA) Negative Urine Ketones 1+ H Urine Blood 3+ H Urine Nitrite Negative Urine Bilirubin Negative Urine Urobilinogen 2.0 H Ur Leukocyte Esterase Negative Urine WBC (Auto) 19 Urine RBC (Auto) 15 Ur Epithelial Cells Rare Hyaline Casts 1 Urine Mucus Rare RPR Titer Nonreactive 04/07/18 08:32 WBC 3.8 L RBC 4.69 Hgb 13.1 Hct 39.2 D MCV 83.5 MCH 28.0 MCHC 33.5 RDW 13.5 Plt Count 237 MPV 9.2 Sodium Potassium Chloride Carbon Dioxide Anion Gap BUN Creatinine Creat Clearance w eGFR Random Glucose Calcium Total Bilirubin AST ALT Alkaline Phosphatase Total Protein Albumin Urine Color Urine Appearance Urine pH Ur Specific [employer] Urine Protein Urine Glucose (UA) Urine Ketones Urine Blood Urine Nitrite Urine Bilirubin Urine Urobilinogen Ur Leukocyte Esterase Urine WBC (Auto) Urine RBC (Auto) Ur Epithelial Cells Hyaline Casts Urine Mucus RPR Titer LABS NOTED. Assessment: 04/07/18 14:02 WITHDRAWAL SYMPTOMS. HYPOKALEMIA. 04/07/18 14:05 Plan: CONTINUE DETOX. K-DUR, 20 MEQ PO BID. REPEAT UA FOR ADMISSION ABNORMALITIES. NO URINARY COMPLAINTS (BURNING, PAIN, FREQUENCY, URGENCY) OFFERED BY PATIENT DURING TODAY'S ROUNDS ASSESSMENT. INCREASE DAILY PO FLUID INTAKE.
[2018-04-07] MEDS ORDERED: POTASSIUM CHLORIDE TABS 20 MEQ TABLET.ER (FP) PO ONE (14:05)
[2018-04-07] MEDS: POTASSIUM CHLORIDE TABS 20 MEQ TABLET.ER (FP) PO SCH (17:55)
[2018-04-07] MEDS ORDERED: TRIMETHOBENZAMIDE HCL 200MG/2ML INJ IM ONE (18:00)
[2018-04-07] MEDS ORDERED: IBUPROFEN 400 MG TABLET (FP) PO ONE (19:09)
--- NOTE | 2018-04-07 20:49 | PN ---
[facility] Progress Note Note: Patient seen earlier and c/o severe pain in (L) arm radiating down past elbow. Holding arm tightly to body and crying. C/o continued nausea. At 1900 hrs, pat noted to have increased tenderness (L) deltoid area when arm moved. No erythema or swelling. Fingers warm/mobile. Radial pulse present. Per MAR: Patient was given Tigan 200 mg (2ml) IM in (L) deltoid area. Plan: Ice to (L) deltoid area Ibuprofen 600 mg PO. Vistaril 50 mg. Slitting Machine Operator Helper Camron Oleary notified.
[2018-04-07] MEDS: THIAMINE HCL 100 MG TABLET (FP) PO SCH (22:35)
--- NOTE | 2018-04-07 23:08 | PN ---
[facility] Progress Note Note: States (L) arm pain has subsided. FROM (L) arm. No erythema. No swelling. Radial pulse (+)
[2018-04-08] MEDS: chlordiazePOXIDE HCL 25 MG CAPSULE PO SCH ×3 (05:47→17:40)
[2018-04-08] MEDS: POTASSIUM CHLORIDE TABS 20 MEQ TABLET.ER (FP) PO SCH ×2 (10:19→17:40)
[2018-04-08] MEDS: PRENATAL VITAMINS W/ FOLIC ACID TABLET (FP) PO SCH (10:19)
[2018-04-08] MEDS: NICOTINE 14 MG/24 HOURS TOPICAL PATCH TD SCH (10:21)
--- NOTE | 2018-04-08 15:54 | PN ---
[facility] CIWA - CIWA Score Nausea/Vomitin-No Nausea/No Vomiting Muscle Tremors: None Anxiety: 0-No Anxiety, at Ease Agitation: 0-Normal Activity Paroxysmal Sweats: 3 Orientation: 0-Oriented Tacttile Disturbances: 2-Mild Itch/Numbness/Burn Auditory Disturbances: 1-Very Mild Visual Disturbances: 3-Moderate Sensitivity Headache: 0-None Present CIWA-Ar Total Score: 9 S Progress Note (SOAP) Subjective: Sweating, Diarrhea, Stomach Cramping, Body Aches, Fatigue. Objective: PATIENT A & O X 3, OBSERVED AMBULATING ON UNIT. IN NO ACUTE DISTRESS. 04/08/18 15:52 Vital Signs Temperature 98.8 F 04/08/18 14:12 Pulse Rate 110 H 04/08/18 14:12 Respiratory Rate 16 04/08/18 14:12 Blood Pressure 97/71 04/08/18 14:12 O2 Sat by Pulse Oximetry (%) Laboratory Tests 04/06/18 04/07/18 04/07/18 21:41 07:00 07:00 WBC RBC Hgb Hct MCV MCH MCHC RDW Plt Count MPV Sodium 142 Potassium 3.1 L Chloride 106 Carbon Dioxide 27 Anion Gap 10 BUN 11 Creatinine 0.6 Creat Clearance w eGFR > 60 Random Glucose 95 Calcium 7.8 L Total Bilirubin 0.1 L AST 10 L ALT 11 L Alkaline Phosphatase 54 Total Protein 6.2 L Albumin 3.4 Urine Color Yellow Urine Appearance Clear Urine pH 6.0 Ur Specific [place] 1.023 Urine Protein 2+ H Urine Glucose (UA) Negative Urine Ketones 1+ H Urine Blood 3+ H Urine Nitrite Negative Urine Bilirubin Negative Urine Urobilinogen 2.0 H Ur Leukocyte Esterase Negative Urine WBC (Auto) 19 Urine RBC (Auto) 15 Ur Epithelial Cells Rare Hyaline Casts 1 Urine Mucus Rare RPR Titer Nonreactive 04/07/18 08:32 WBC 3.8 L RBC 4.69 Hgb 13.1 Hct 39.2 D MCV 83.5 MCH 28.0 MCHC 33.5 RDW 13.5 Plt Count 237 MPV 9.2 Sodium Potassium Chloride Carbon Dioxide Anion Gap BUN Creatinine Creat Clearance w eGFR Random Glucose Calcium Total Bilirubin AST ALT Alkaline Phosphatase Total Protein Albumin Urine Color Urine Appearance Urine pH Ur Specific [place] Urine Protein Urine Glucose (UA) Urine Ketones Urine Blood Urine Nitrite Urine Bilirubin Urine Urobilinogen Ur Leukocyte Esterase Urine WBC (Auto) Urine RBC (Auto) Ur Epithelial Cells Hyaline Casts Urine Mucus RPR Titer LABS NOTED. RESULTS OF REPEAT UA PENDING. 04/08/18 15:53 Assessment: 04/08/18 15:53 WITHDRAWAL SYMPTOMS. Plan: CONTINUE DETOX. INCREASE DAILY PO FLUID INTAKE. ENCOURAGE AMBULATION. CONTINUE K-DUR. PRN IMMODIUM FOR DIARRHEA.
[2018-04-08 21:00] LABS: URINE APPEARANCE SLCLOUDY; URINE BILIRUBIN NEGATIVE (<2.0 mg/dL); URINE COLOR AMBER; URINE GLUCOSE (UA) NEGATIVE (NEGATIVE); URINE KETONE NEGATIVE (NEGATIVE); URINE LEUK ESTERASE NEGATIVE (NEGATIVE); URINE NITRITE NEGATIVE (NEGATIVE); URINE PROTEIN 1+ (NEGATIVE); URINE UROBILINOGEN 4.0 E.U/dl mg/dL (0.2-1.0)
[2018-04-08 21:08] LABS: EPI CELLS RARE /HPF (FEW); URINE BACTERIA RARE /hpf (NONE SEEN); URINE MUCUS FEW
[2018-04-08] MEDS: chlordiazePOXIDE 5 MG CAPSULE PO SCH (22:27)
[2018-04-08] MEDS: MELATONIN 5 MG TABLETS PO PRN (22:27)
[2018-04-08] MEDS: THIAMINE HCL 100 MG TABLET (FP) PO SCH (22:27)
[2018-04-09] MEDS: chlordiazePOXIDE 5 MG CAPSULE PO SCH ×3 (05:43→17:37)
[2018-04-09] MEDS: PRENATAL VITAMINS W/ FOLIC ACID TABLET (FP) PO SCH (10:59)
[2018-04-09] MEDS: POTASSIUM CHLORIDE TABS 20 MEQ TABLET.ER (FP) PO SCH ×2 (10:59→17:36)
[2018-04-09] MEDS: NICOTINE 14 MG/24 HOURS TOPICAL PATCH TD SCH (10:59)
--- NOTE | 2018-04-09 17:50 | PN ---
[facility] Progress Note (SOAP) Subjective: Denies any symptoms. Patient is anxious and restless. Objective: 04/09/18 17:45 Last Vital Signs Temp Pulse Resp BP Pulse Ox 98.3 F 88 16 74/54 L 04/09/18 15:05 04/09/18 15:05 04/09/18 15:05 04/09/18 15:05 Hypotension: (asymptomatic), encouraged PO water hydration; b/p has been running low but patient remained asymptomatic Laboratory Tests 04/06/18 04/07/18 04/07/18 21:41 07:00 07:00 WBC RBC Hgb Hct MCV MCH MCHC RDW Plt Count MPV Sodium 142 Potassium 3.1 L Chloride 106 Carbon Dioxide 27 Anion Gap 10 BUN 11 Creatinine 0.6 Creat Clearance w eGFR > 60 Random Glucose 95 Calcium 7.8 L Total Bilirubin 0.1 L AST 10 L ALT 11 L Alkaline Phosphatase 54 Total Protein 6.2 L Albumin 3.4 Urine Color Yellow Urine Appearance Clear Urine pH 6.0 Ur Specific [place] 1.023 Urine Protein 2+ H Urine Glucose (UA) Negative Urine Ketones 1+ H Urine Blood 3+ H Urine Nitrite Negative Urine Bilirubin Negative Urine Urobilinogen 2.0 H Ur Leukocyte Esterase Negative Urine WBC (Auto) 19 Urine RBC (Auto) 15 Ur Epithelial Cells Rare Urine Bacteria Hyaline Casts 1 Urine Mucus Rare RPR Titer Nonreactive 04/07/18 04/08/18 08:32 14:46 WBC 3.8 L RBC 4.69 Hgb 13.1 Hct 39.2 D MCV 83.5 MCH 28.0 MCHC 33.5 RDW 13.5 Plt Count 237 MPV 9.2 Sodium Potassium Chloride Carbon Dioxide Anion Gap BUN Creatinine Creat Clearance w eGFR Random Glucose Calcium Total Bilirubin AST ALT Alkaline Phosphatase Total Protein Albumin Urine Color Gin Urine Appearance Slcloudy Urine pH 7.0 Ur Specific [place] 1.028 Urine Protein 1+ H Urine Glucose (UA) Negative Urine Ketones Negative Urine Blood Negative Urine Nitrite Negative Urine Bilirubin Negative Urine Urobilinogen 4.0 e.u/dl H Ur Leukocyte Esterase Negative Urine WBC (Auto) 3 Urine RBC (Auto) 2 Ur Epithelial Cells Rare Urine Bacteria Rare Hyaline Casts Urine Mucus Few RPR Titer Labs reviewed: K 3.1 04/09/18 17:49 Assessment: 04/09/18 17:46 Withdrawal symptoms Noted with hypotension and hypokalemia Plan: Continue detox Hypotension: asymptomatic, encouraged PO water hydration; need to transfer patient to ER for IV hydration if b/p runs this low and patient becomes symptomatic Hypokalemia: replenished
[2018-04-09] MEDS: chlordiazePOXIDE HCL 10 MG CAPSULE PO SCH (22:12)
[2018-04-09] MEDS: THIAMINE HCL 100 MG TABLET (FP) PO SCH (22:12)
[2018-04-09] MEDS: MELATONIN 5 MG TABLETS PO PRN (22:12)
[2018-04-10] MEDS: chlordiazePOXIDE HCL 10 MG CAPSULE PO SCH (06:06)
[2018-04-10 09:19] VITALS: BP 116/62; PULSE 71; TEMP 96.7
--- NOTE | 2018-04-10 11:45 | DS ---
[facility] Detox Discharge Summary Admission Date: 04/06/18 Discharge Date: 04/10/18 - History Present History: Alcohol Dependence Additional Comments: 38 years old female admitted on 04/06/18 for alcohol withdrawal stabilization completed detox regimen alert no acute distress aftercare [facility] rehab - Physical Exam Results Vital Signs: Vital Signs Temperature 96.7 F L 04/10/18 09:18 Pulse Rate 71 04/10/18 09:18 Respiratory Rate 18 04/10/18 09:18 Blood Pressure 116/62 04/10/18 09:18 O2 Sat by Pulse Oximetry (%) Pertinent Admission Physical Exam Findings: alcohol withdrawal sx Laboratory Last Values WBC 3.8 K/mm3 (4.0-10.0) L 04/07/18 08:32 RBC 4.69 M/mm3 (3.60-5.2) 04/07/18 08:32 Hgb 13.1 GM/dL (10.7-15.3) 04/07/18 08:32 Hct 39.2 % (32.4-45.2) D 04/07/18 08:32 MCV 83.5 fl (80-96) 04/07/18 08:32 MCH 28.0 pg (25.7-33.7) 04/07/18 08:32 MCHC 33.5 g/dl (32.0-36.0) 04/07/18 08:32 RDW 13.5 % (11.6-15.6) 04/07/18 08:32 Plt Count 237 K/MM3 (134-434) 04/07/18 08:32 MPV 9.2 fl (7.5-11.1) 04/07/18 08:32 Sodium 142 mmol/L (136-145) 04/07/18 07:00 Potassium 3.1 mmol/L (3.5-5.1) L 04/07/18 07:00 Chloride 106 mmol/L (98-107) 04/07/18 07:00 Carbon Dioxide 27 mmol/L (21-32) 04/07/18 07:00 Anion Gap 10 MMOL/L (8-16) 04/07/18 07:00 BUN 11 mg/dL (7-18) 04/07/18 07:00 Creatinine 0.6 mg/dL (0.55-1.3) 04/07/18 07:00 Creat Clearance w eGFR > 60 (>60) 04/07/18 07:00 Random Glucose 95 mg/dL (74-106) 04/07/18 07:00 Calcium 7.8 mg/dL (8.5-10.1) L 04/07/18 07:00 Total Bilirubin 0.1 mg/dL (0.2-1) L 04/07/18 07:00 AST 10 U/L (15-37) L 04/07/18 07:00 ALT 11 U/L (13-61) L 04/07/18 07:00 Alkaline Phosphatase 54 U/L (45-117) 04/07/18 07:00 Total Protein 6.2 g/dl (6.4-8.2) L 04/07/18 07:00 Albumin 3.4 g/dl (3.4-5.0) 04/07/18 07:00 Urine Color Gin 04/08/18 14:46 Urine Appearance Slcloudy 04/08/18 14:46 Urine pH 7.0 (5.0-8.0) 04/08/18 14:46 Ur Specific [place] 1.028 (1.010-1.035) 04/08/18 14:46 Urine Protein 1+ (NEGATIVE) H 04/08/18 14:46 Urine Glucose (UA) Negative (NEGATIVE) 04/08/18 14:46 Urine Ketones Negative (NEGATIVE) 04/08/18 14:46 Urine Blood Negative (NEGATIVE) 04/08/18 14:46 Urine Nitrite Negative (NEGATIVE) 04/08/18 14:46 Urine Bilirubin Negative (<2.0 mg/dL) 04/08/18 14:46 Urine Urobilinogen 4.0 e.u/dl mg/dL (0.2-1.0) H 04/08/18 14:46 Ur Leukocyte Esterase Negative (NEGATIVE) 04/08/18 14:46 Urine WBC (Auto) 3 /hpf (3-5) 04/08/18 14:46 Urine RBC (Auto) 2 /hpf (0-3) 04/08/18 14:46 Ur Epithelial Cells Rare /HPF (FEW) 04/08/18 14:46 Urine Bacteria Rare /hpf (NONE SEEN) 04/08/18 14:46 Hyaline Casts 1 /lpf 04/06/18 21:41 Urine Mucus Few 04/08/18 14:46 RPR Titer Nonreactive (NONREACTIVE) 04/07/18 07:00 lab noted low calcium low potassium - Treatment Hospital Course: Detox Protocol Followed, Detoxed Safely, Responded well, Discharged Condition Good, Rehab Referral Accepted Patient has Accepted a Rehab Referral to: [facility] - Medication Discharge Medications: Ambulatory Orders Bupropion HCl [Wellbutrin Xl -] 150 mg PO DAILY 04/06/18 Calcium 250Mg/Vit-D 125 Units [Oscal 250 mg+D -] 1 tab PO BID #30 tab 04/10/18 Potassium Chloride [K-Dur -] 20 meq PO BID@1000,1800 #10 tablet.er 04/10/18 - Diagnosis (1) Hypocalcemia Status: Chronic (2) Alcohol dependence with uncomplicated withdrawal Status: Acute (3) Hypokalemia Status: Acute (4) Substance induced mood disorder Status: Suspected (5) Nicotine dependence Status: Acute Qualifiers: Nicotine product type: cigarettes Substance use status: in withdrawal Qualified Code(s): F17.213 - Nicotine dependence, cigarettes, with withdrawal - AMA Did Patient Leave Against Medical Advice: No
[2018-04-10] MEDS ORDERED: CALCIUM 250MG/VIT-D 125 UNITS 1 COMBO TABLET PO SCH (22:00)
== END 2018-04-10 09:30 | disposition home or self-care (01) | DRG 774 ==
LOC: YASAS 19:04 → Y3N 21:00
PROVIDERS: ADMIT Neuromusculoskeletal Medicine & OMM; ATTEND Neuromusculoskeletal Medicine & OMM
PROC: HZ2ZZZZ Detoxification Services for Substance Abuse Treatment (ICD-10-PCS; principal; 2018-04-06)
DX: F10.230 Alcohol dependence with withdrawal, uncomplicated (principal); F14.20 Cocaine dependence, uncomplicated; F17.213 Nicotine dependence, cigarettes, with withdrawal; F19.24 Other psychoactive substance dependence with psychoactive substance-induced mood disorder; F32.9 Major depressive disorder, single episode, unspecified; E87.6 Hypokalemia; E83.51 Hypocalcemia; D50.8 Other iron deficiency anemias; M79.662 Pain in left lower leg; R11.0 Nausea; R63.8 Other symptoms and signs concerning food and fluid intake
CPT/HCPCS: 36415; 80053; 81003; 81015; 85027; 86593; 93005; 93010; Q0162

== ENCOUNTER 2018-05-16 15:02 | Emergency (ER) | payer OTHER ==
[2018-05-16] MEDS ORDERED: FAMOTIDINE 20 MG/50 ML IVPB 20 MG/50 ML MG IVPB ONE ×2 (15:32→16:27)
[2018-05-16] MEDS ORDERED: methylPREDNISolone NA SUCC 125 MG/2 ML VIAL IVPB ONE (15:32)
--- NOTE | 2018-05-16 15:32 | PDOC ---
Rapid Medical Evaluation Chief Complaint: Allergic Reaction Medical Evaluation: Allergies Allergy/AdvReac Type Severity Reaction Status Date / Time No Known Allergies Allergy Verified 04/06/18 20:02 I have performed a brief in-person evaluation of this patient. The patient presents with a chief complaint of: hx of alcohol dependence (on Naltrexone x 1 month); woke up today with lip swelling and sensation of throat closing; denies sob; denies other new meds; no known allergies Pertinent physical exam findings: +angioedema of lower lip, no tongue swelling, oropharynx clear, lungs clear; in no respiratory distress I have ordered the following: Benadryl, Solumedrol, Pepcid The patient will proceed to the ED for further evaluation. 05/16/18 15:29 Discharge Disposition - Discharge Dispostion Condition at time of disposition: Stable - Referrals - Patient Instructions - Post Discharge Activity
[2018-05-16 15:34] VITALS: BP 106/77; PULSE 72; TEMP 98.7; BMI 20.4
[2018-05-16] MEDS ORDERED: methylPREDNISolone NA SUCC 125 MG/2 ML VIAL ONE (16:27)
[2018-05-16] MEDS ORDERED: RANITIDINE HCL 150 MG TABLET (FP) PO ONE (16:36)
[2018-05-16] MEDS ORDERED: diphenhydrAMINE HCL 25 MG CAPSULE (FP) PO ONE ×2 (16:36→16:38)
[2018-05-16] MEDS ORDERED: predniSONE 20 MG TABLET (UD) PO ONE (16:37)
[2018-05-16] MEDS ORDERED: predniSONE 20 MG TABLET (UD) ONE (16:38)
[2018-05-16] MEDS ORDERED: RANITIDINE HCL 150 MG TABLET (FP) ONE ×2 (16:38→16:41)
--- NOTE | 2018-05-16 16:53 | PDOC ---
History of Present Illness - General History Source: Patient Exam Limitations: No Limitations - History of Present Illness Initial Comments: 05/16/18 17:05 The patient is a 38-year-old female, with a past medical history of alcohol dependence (on Naltrexone x 1 month) and cocaine dependence, who presents to the ED with RT-sided lip swelling and difficulty swallowing. The patient denies any shortness of breath. Denies any recent changes in medications or use of new detergents or soaps. She has no known allergies. Patient was recently discharged from rehab 5 days ago. She denies any cocaine use since leaving rehab. The patient denies any rashes or facial swelling. Denies any chest pain. Denies any fevers, chills, nausea, vomiting, diarrhea, or abdominal pain. Allergies: NKA Social History: Alcohol and cocaine dependence. Surgical History: None reported. <Jackie Bejarano - Last Filed: 05/16/18 17:05> <Patricia Neville - Last Filed: 05/16/18 18:23> - General Chief Complaint: Allergic Reaction Stated Complaint: WEAKNESS/LIP SWOLLEN Time Seen by Provider: 05/16/18 15:29 Past History <Jackie Bejarano - Last Filed: 05/16/18 17:05> - Past Medical History Anemia: Yes Asthma: No Cancer: No Cardiac Disorders: No CVA: No COPD: No CHF: No Diabetes: No GI Disorders: No Disorders: No HTN: No Hypercholesterolemia: No Kidney Stones: No Liver Disease: No Seizures: No Thyroid Disease: No - Surgical History Abdominal Surgery: No Appendectomy: No Cardiac Surgery: No Cholecystectomy: No Lung Surgery: No Neurologic Surgery: No Orthopedic Surgery: No - Immunization History Immunization Up to Date: Yes - Suicide/Smoking/Psychosocial Hx Smoking History: Unknown if ever smoked Have you smoked in the past 12 months: No Number of Cigarettes Smoked Daily: 10 If you are a former smoker, when did you quit?: 3 MONTHS AGO Cigars Per Day: 0 Information on smoking cessation initiated: No 'Breaking Loose' booklet given: 04/06/18 Hx Alcohol Use: No Drug/Substance Use Hx: No Substance Use Type: Alcohol, Cocaine Hx Substance Use Treatment: No <Patricia Neville - Last Filed: 05/16/18 18:23> - Past Medical History Allergies/Adverse Reactions: Allergies Allergy/AdvReac Type Severity Reaction Status Date / Time No Known Allergies Allergy Verified 04/06/18 20:02 Home Medications: Ambulatory Orders Bupropion HCl [Wellbutrin Xl -] 150 mg PO DAILY 04/06/18 Calcium 250Mg/Vit-D 125 Units [Oscal 250 mg+D -] 1 tab PO BID #30 tab 04/10/18 Prednisone [Deltasone] 20 mg PO BID #6 tablet 05/16/18 Review of Systems - Review of Systems Able to Perform ROS?: Yes Comments:: 05/16/18 17:05 GENERAL/CONSTITUTIONAL: No fever or chills. No weakness. HEAD, EYES, EARS, NOSE AND THROAT:(+)RT-sided lip swelling, difficulty swallowing. No change in vision. No ear pain or discharge. CARDIOVASCULAR: No chest pain or shortness of breath. RESPIRATORY: No cough, wheezing, or hemoptysis. GASTROINTESTINAL: No nausea, vomiting, diarrhea or constipation. GENITOURINARY: No dysuria, frequency, or change in urination. MUSCULOSKELETAL: No joint or muscle swelling or pain. No neck or back pain. SKIN: No rash NEUROLOGIC: No headache, vertigo, loss of consciousness, or change in strength/ sensation. ENDOCRINE: No increased thirst. No abnormal weight change. HEMATOLOGIC/LYMPHATIC: No anemia, easy bleeding, or history of blood clots. ALLERGIC/IMMUNOLOGIC: No hives or skin allergy. <Jackie Bejarano - Last Filed: 05/16/18 17:05> *Physical Exam - Vital Signs Last Vital Signs Temp Pulse Resp BP Pulse Ox 98.7 F 72 18 106/77 97 05/16/18 15:28 05/16/18 15:28 05/16/18 15:28 05/16/18 15:28 05/16/18 15:28 <Jackie Bejarano - Last Filed: 05/16/18 17:05> - Vital Signs Last Vital Signs Temp Pulse Resp BP Pulse Ox 98.7 F 72 18 106/77 97 05/16/18 15:28 05/16/18 15:28 05/16/18 15:28 05/16/18 15:28 05/16/18 15:28 - Physical Exam Comments: 05/16/18 16:46 awake alert lung clear bilaterally heart rrr no mrg abd soft nt nd. ext wwp no edema. no calf tenderness. facial redness, no uvular edema. no tongue or lip swelling. no stridor. otherwise skin no urticarial <Patricia Neville - Last Filed: 05/16/18 18:23> Moderate Sedation - Procedure Monitoring Vital Signs: Procedure Monitoring Vital Signs Temperature 98.7 F 05/16/18 15:28 Pulse Rate 72 05/16/18 15:28 Respiratory Rate 18 05/16/18 15:28 Blood Pressure 106/77 05/16/18 15:28 O2 Sat by Pulse Oximetry (%) 97 05/16/18 15:28 <Jackie Bejarano - Last Filed: 05/16/18 17:05> - Procedure Monitoring Vital Signs: Procedure Monitoring Vital Signs Temperature 98.7 F 05/16/18 15:28 Pulse Rate 72 05/16/18 15:28 Respiratory Rate 18 05/16/18 15:28 Blood Pressure 106/77 05/16/18 15:28 O2 Sat by Pulse Oximetry (%) 97 05/16/18 15:28 <Patricia Neville - Last Filed: 05/16/18 18:23> ED Treatment Course - Medications Given in the ED: ED Medications Discontinued Medications Generic Name Dose Route Start Last Admin Trade Name Freq PRN Reason Stop Dose Admin Diphenhydramine HCl 50 mg 05/16/18 15:32 05/16/18 16:46 Benadryl Injection - IVPUSH 05/16/18 15:33 Not Given ONCE ONE Diphenhydramine HCl 50 mg 05/16/18 16:36 05/16/18 16:45 Benadryl - PO 05/16/18 16:37 50 mg ONCE ONE Administration Famotidine/Sodium Chloride 20 mg in 50 mls @ 100 mls/hr 05/16/18 15:32 16:46 Pepcid 20 Mg Premixed Ivpb - IVPB 05/16/18 16:01 Not Given ONCE ONE Methylprednisolone Sodium Succinate 125 mg 05/16/18 15:32 05/16/18 16:46 Solu-Medrol - IVPB 05/16/18 15:33 Not Given ONCE ONE Prednisone 60 mg 05/16/18 16:37 05/16/18 16:45 Deltasone - PO 05/16/18 16:38 60 mg ONCE ONE Administration Ranitidine HCl 300 mg 05/16/18 16:36 05/16/18 16:45 Zantac - PO 05/16/18 16:37 300 mg ONCE ONE Administration <Jackie Bejarano - Last Filed: 05/16/18 17:05> - Medications Given in the ED: ED Medications Discontinued Medications Generic Name Dose Route Start Last Admin Trade Name Nathanael PRN Reason Stop Dose Admin Diphenhydramine HCl 50 mg 05/16/18 15:32 05/16/18 16:46 Benadryl Injection - IVPUSH 05/16/18 15:33 Not Given ONCE ONE Diphenhydramine HCl 50 mg 05/16/18 16:36 05/16/18 16:45 Benadryl - PO 05/16/18 16:37 50 mg ONCE ONE Administration Famotidine/Sodium Chloride 20 mg in 50 mls @ 100 mls/hr 05/16/18 15:32 16:46 Pepcid 20 Mg Premixed Ivpb - IVPB 05/16/18 16:01 Not Given ONCE ONE Methylprednisolone Sodium Succinate 125 mg 05/16/18 15:32 05/16/18 16:46 Solu-Medrol - IVPB 05/16/18 15:33 Not Given ONCE ONE Prednisone 60 mg 05/16/18 16:37 05/16/18 16:45 Deltasone - PO 05/16/18 16:38 60 mg ONCE ONE Administration Ranitidine HCl 300 mg 05/16/18 16:36 05/16/18 16:45 Zantac - PO 05/16/18 16:37 300 mg ONCE ONE Administration <Patricia Neville - Last Filed: 05/16/18 18:23> Medical Decision Making - Medical Decision Making 05/16/18 16:49 38 yo F with h/o etoh abuse on naltrexone for etoh abuse for one month, here with lip swelling and facial redness. at this time no appreciated lip or tongue swelling. will give prednisone, benadryla nd ranitidine. senait dc on thre hours prednisone. 05/16/18 18:18 pt feels improved will dc on rx for prednisone. <Patricia Neville - Last Filed: 05/16/18 18:23> *DC/Admit/Observation/Transfer - Attestations Scribe Attestion: 05/16/18 17:06 Documentation prepared by Jackie Bejarano, acting as medical front desk coordinator for Patricia Neville MD. <Jackie Bejarano - Last Filed: 05/16/18 17:05> <Patricia Neville - Last Filed: 05/16/18 18:23> Diagnosis at time of Disposition: Allergic reaction - Discharge Dispostion Disposition: HOME Condition at time of disposition: Improved - Prescriptions Prescriptions: Prednisone [Deltasone] 20 mg PO BID #6 tablet - Patient Instructions Printed Discharge Instructions: Urticaria (Alternative Therapy) Additional Instructions: you should take benadryl 25 mg every 6 hours as needed for itching and rash. you can take prednisone 20 mg twice daily . return for any shortness of breath , worsening swelling or any concerns.
== END 2018-05-16 18:34 | disposition home or self-care (01) ==
LOC: JER 15:02
DX: T78.40XA Allergy, unspecified, initial encounter (principal); X58.XXXA Exposure to other specified factors, initial encounter; F10.20 Alcohol dependence, uncomplicated; F14.20 Cocaine dependence, uncomplicated
CPT/HCPCS: 99282-25

== ENCOUNTER 2018-05-17 02:09 | Emergency (ER) | payer OTHER ==
--- NOTE | 2018-05-17 02:26 | PDOC ---
Medical Decision Making - Medical Decision Making 05/17/18 02:26 Patient seen by the advanced practice provider under my direct supervision. Ancillary testing reviewed as necessary. I agree with plan as outlined by the advanced practice provider. *DC/Admit/Observation/Transfer Diagnosis at time of Disposition: Alcohol dependence with uncomplicated withdrawal - Referrals - Patient Instructions - Post Discharge Activity
--- NOTE | 2018-05-17 03:49 | PDOC ---
History of Present Illness - General Chief Complaint: Alcohol intoxication Stated Complaint: INTOX Time Seen by Provider: 05/17/18 02:20 History Source: Patient - History of Present Illness Initial Comments: 05/17/18 04:40 38 year old female seen in the ER yesterday c/o right hip pain and back pain. after d/c from this hospital patient was seen at [facility] for similar complaints and was given Benadryl last night. Patient has a h/o etoh abuse on naltrexone for etoh abuse for one month, and cocaine abuse. patient is slurring and breath smelling of alcohol. patient recently discharged from detox 05/17/18 06:05 Past History - Past Medical History Allergies/Adverse Reactions: Allergies Allergy/AdvReac Type Severity Reaction Status Date / Time No Known Allergies Allergy Verified 05/17/18 03:20 Home Medications: Ambulatory Orders Bupropion HCl [Wellbutrin Xl -] 150 mg PO DAILY 04/06/18 Calcium 250Mg/Vit-D 125 Units [Oscal 250 mg+D -] 1 tab PO BID #30 tab 04/10/18 Prednisone [Deltasone] 20 mg PO BID #6 tablet 05/16/18 Anemia: Yes Asthma: No Cancer: No Cardiac Disorders: No CVA: No COPD: No CHF: No Diabetes: No GI Disorders: No Disorders: No HTN: No Hypercholesterolemia: No Kidney Stones: No Liver Disease: No Seizures: No Thyroid Disease: No - Surgical History Abdominal Surgery: No Appendectomy: No Cardiac Surgery: No Cholecystectomy: No Lung Surgery: No Neurologic Surgery: No Orthopedic Surgery: No - Immunization History Immunization Up to Date: Yes - Suicide/Smoking/Psychosocial Hx Smoking History: Unknown if ever smoked Have you smoked in the past 12 months: No Number of Cigarettes Smoked Daily: 10 If you are a former smoker, when did you quit?: 3 MONTHS AGO Cigars Per Day: 0 Information on smoking cessation initiated: No 'Breaking Loose' booklet given: 04/06/18 Hx Alcohol Use: Yes Drug/Substance Use Hx: Yes (COCAINE) Substance Use Type: Alcohol, Cocaine Hx Substance Use Treatment: No *Physical Exam - Vital Signs Last Vital Signs Temp Pulse Resp BP Pulse Ox 98.6 F 84 17 108/71 96 05/17/18 03:17 05/17/18 03:17 05/17/18 03:17 05/17/18 03:17 05/17/18 03:17 - Physical Exam General Appearance: Yes: Appropriately Dressed HEENT: positive: Pharynx Normal (no edema noted), Other (no lip swelling ) Respiratory/Chest: positive: Lungs Clear, Normal Breath Sounds Cardiovascular: positive: Regular Rhythm, Regular Rate Gastrointestinal/Abdominal: positive: Normal Bowel Sounds, Soft. negative: Tender Extremity: positive: Normal Capillary Refill, Normal Inspection, Normal Range of Motion Integumentary: positive: Normal Color, Dry, Warm Neurologic: positive: Alert Moderate Sedation - Procedure Monitoring Vital Signs: Procedure Monitoring Vital Signs Temperature 98.6 F 05/17/18 03:17 Pulse Rate 84 05/17/18 03:17 Respiratory Rate 17 05/17/18 03:17 Blood Pressure 108/71 05/17/18 03:17 O2 Sat by Pulse Oximetry (%) 96 05/17/18 03:17 Medical Decision Making - Medical Decision Making 05/17/18 04:43 A: substance abuse/ alcohol abuse P: will await sobriety *DC/Admit/Observation/Transfer Diagnosis at time of Disposition: Substance abuse - Discharge Dispostion Disposition: HOME - Referrals - Patient Instructions Printed Discharge Instructions: DI for Alcohol Abuse - Post Discharge Activity
[2018-05-17 04:57] VITALS: BP 108/71; PULSE 84; TEMP 98.6; BMI 20.4
== END 2018-05-17 06:39 | disposition home or self-care (01) ==
LOC: JER 02:09
DX: F10.10 Alcohol abuse, uncomplicated (principal); F14.10 Cocaine abuse, uncomplicated
CPT/HCPCS: 99281-25

== ENCOUNTER 2018-05-18 01:00 | Inpatient (IN) | payer SELFPAY ==
--- NOTE | 2018-05-18 01:12 | HP ---
CIWA Score Nausea/Vomitin-No Nausea/No Vomiting Muscle Tremors: 4-Moderate,w/Arms Extend Anxiety: 5 Agitation: 4-Moderately Restless Paroxysmal Sweats: No Perspiration Orientation: 0-Oriented Tacttile Disturbances: 0-None Auditory Disturbances: 0-None Visual Disturbances: 0-None Headache: 0-None Present CIWA-Ar Total Score: 13 - Admission Criteria OASAS Guidelines: Admission for Medically Managed Detox: Requires at least one of the followin. CIWA greater than 12 2. Seizures within the past 24 hours 3. Delirium tremens within the past 24 hours 4. Hallucinations within the past 24 hours 5. Acute intervention needed for co occurring medical disorder 6. Acute intervention needed for co occurring psychiatric disorder 7. Severe withdrawal that cannot be handled at a lower level of care (continued vomiting, continued diarrhea, abnormal vital signs) requiring intravenous medication and/or fluids 8. Patient presents the following: CIWA greater than 12, Acute intervention needed for co-occurring med or psych disorder Admission Criteria Met: Admission criteria met Admission ROS S - [facility] Chief Complaint: c/o worsening withdrawal sx's seeking detox. Allergies/Adverse Reactions: Allergies Allergy/AdvReac Type Severity Reaction Status Date / Time No Known Allergies Allergy Verified 05/17/18 03:20 History of Present Illness: 38 y.o. female with hx/o alcoholism here for detox. Client is known to this program. She is self referred. Last here 03/2018. She reports being dc from [facility] after 3 week stay. DC 5 days ago but has since relapsed. She was started on naltrexone 50 mg daily while there. last taken 05/16/2018. presents today with c/o worsening withdrawal sx's. seeking detox. Rony .031, utox + lucinda. Ciwa 13. presents very anxious, irritable with periods of emotional distress ( crying ). She presently denies si/hi/avh. She reports she has a pending cps case. Her last drink was approximately a hour ago due to take the edge off her withdrawal sx's. She has been at [facility] ER for the past 2 days for swelling/angioedema of the lip which has since resolved. She also presents very flushed, hot skin and dry mucus membranes. Currently lives at home with family, unemployed, pending cps case. pmhx- denies psych- neverr been dx's. reports anxiety and depression Exam Limitations: No Limitations - Ebola screening Have you traveled outside of the country in the last 21 days: No Have you had contact with anyone from an Ebola affected area: No Have you been sick,other than usual withdrawal symptoms: No Do you have a fever: No - Review of Systems Constitutional: Loss of Appetite, Changes in sleep EENT: reports: No Symptoms Reported Respiratory: reports: No Symptoms reported Cardiac: reports: No Symptoms Reported GI: reports: Poor Appetite, Poor Fluid Intake : reports: No Symptoms Reported Musculoskeletal: reports: No Symptoms Reported Integumentary: reports: Flushing Neuro: reports: No Symptoms reported Endocrine: reports: Flushing Hematology: reports: No Symptoms Reported Psychiatric: reports: Agitated (irritable), Anxious, Depressed Other Systems: Reviewed and Negative Patient History - Patient Medical History Hx Anemia: Yes Hx Asthma: No Hx Chronic Obstructive Pulmonary Disease (COPD): No Hx Cancer: No Hx Cardiac Disorders: No Hx Congestive Heart Failure: No Hx Hypertension: No Hx Hypercholesterolemia: No Hx Pacemaker: No HX Cerebrovascular Accident: No Hx Seizures: No Hx Diabetes: No Hx Gastrointestinal Disorders: No Hx Liver Disease: No Hx Genitourinary Disorders: No Hx Sexually Transmitted Disorders: No Hx Renal Disease (ESRD): No Hx Thyroid Disease: No Hx Human Immunodeficiency Virus (HIV): No Hx Hepatitis C: No Hx Depression: No Hx Suicide Attempt: No Hx Bipolar Disorder: No Hx Schizophrenia: No Other Medical History: denies - Patient Surgical History Past Surgical History: No Hx Neurologic Surgery: No Hx Cataract Extraction: No Hx Cardiac Surgery: No Hx Lung Surgery: No Hx Breast Surgery: No Hx Breast Biopsy: No Hx Abdominal Surgery: No Hx Appendectomy: No Hx Cholecystectomy: No Hx Genitourinary Surgery: No Hx Section: No Hx Orthopedic Surgery: No Anesthesia Reaction: No - PPD History Previous Implant?: Yes Documented Results: Negative w/proof Implanted On Prior R Admission?: Yes Date: 04/08/18 Results: 0mm PPD to be Administered?: Yes - Reproductive History Patient is a Female of Child Bearing Age (11 -55 yrs old): Yes Last Menstrual Period: 05/11/18 Patient : No (neg uhcg) - Smoking Cessation Smoking history: Current every day smoker Have you smoked in the past 12 months: Yes Aproximately how many cigarettes per day: 4 Cigars Per Day: 0 Hx Chewing Tobacco Use: No Initiated information on smoking cessation: Yes 'Breaking Loose' booklet given: 05/18/18 - Substance & Tx. History Hx Alcohol Use: Yes Hx Substance Use: Yes Substance Use Type: Alcohol, Cocaine Hx Substance Use Treatment: Yes ([facility]) - Substances Abused beer Route: Oral Frequency: 3-6 times per week Amount used: 6- 12oz beer/ 2 shots of vodka Age of first use: 14 Date of Last Use: 05/17/18 (4 beers) cocaine Route: Inhalation Frequency: 1-2 times per week Amount used: $40 Age of first use: 20 Date of Last Use: 05/17/18 Family Disease History - Family Disease History Family Disease History: Other: Grandparent (GRANDMOTHER ALCOHOLIC), Father ( ALCOHOLIC) Admission Physical Exam [facility] - Physical General Appearance: Yes: Appropriately Dressed, Moderate Distress, Alcohol on Breath, Tremorous, Irritable, Anxious, Other (FLUSHED FACE/ CRY LIPS) HEENTM: Yes: EOMI, Normocephalic, Normal Voice, FLAVIO, Pharynx Normal, Other ( TREMBLING VOICE) Respiratory: Yes: Chest Non-Tender, Lungs Clear, Normal Breath Sounds, No Respiratory Distress, No Accessory Muscle Use Neck: Yes: No masses,lesions,Nodules, Supple, Trachea in good position Breast: Yes: Breast Exam Deferred Cardiology: Yes: Regular Rhythm, S1, S2, Tachycardia Abdominal: Yes: Normal Bowel Sounds, Non Tender, Soft Genitourinary: Yes: Other (NO C/O OFFERED) Back: Yes: Normal Inspection Musculoskeletal: Yes: full range of Motion, Gait Steady Extremities: Yes: Normal Capillary Refill, Normal Range of Motion, Non-Tender, Tremors Neurological: Yes: Fully Oriented, Alert, Motor Strength 5/5, Depressed Affect Integumentary: Yes: Dry (MUCUCS MEMBRANES), Warm (HOT FLUSHED SKIN) Lymphatic: Yes: Within Normal Limits - Diagnostic (1) Alcohol dependence with uncomplicated withdrawal Current Visit: Yes Status: Acute (2) At risk for dehydration due to poor fluid intake Current Visit: Yes Status: Acute (3) Nicotine dependence Current Visit: Yes Status: Chronic Qualifiers: Nicotine product type: cigarettes Substance use status: in withdrawal Qualified Code(s): F17.213 - Nicotine dependence, cigarettes, with withdrawal (4) Cocaine abuse, uncomplicated Current Visit: Yes Status: Chronic (5) Depressed affect Current Visit: Yes Status: Acute (6) Substance induced mood disorder Current Visit: Yes Status: Chronic Cleared for Admission S - Detox or Rehab [facility] Level of Care: Medically Managed Detox Regimen/Protocol: Librium Claeared for Rehab Admission: No [facility]HS Breath Alcohol Content Breath Alcohol Content: 0.031 Vital Signs - Vital Signs Vital Signs Refused: No Temperature: 99.4 F Temperature Source: Oral Pulse Rate: 118 Respiratory Rate: 20 Blood Pressure: 104/63 BP Location: Left Arm Blood Pressure Position: Sitting - Height Height: 5 ft 1 in - Weight Weight: 45.359 kg Weight Measurement Method: Standing Scale Body Mass Index (BMI): 18.8 - Bowel Function Bowel Movement: No Urine Pregancy Test - Test Device Lot Number: [id number] Expiration Date: 09/18/19 - Control Horizontal Line in Upper Control Window?: Yes - Result Urine Test Results: Negative- NO Line Present Urine Drug Screen - Test Device Lot Number: [id number] Expiration Date: 12/19/19 - Control Is Test Valid: Yes - Results Drug Screen Negative: No Urine Drug Screen Results: LUCINDA-Cocaine Inpatient Rehab Admission - Rehab Decision to Admit Inpatient rehab admission?: No
[2018-05-18 01:23] VITALS: BMI 18.8
[2018-05-18] MEDS ORDERED: MENTHOL/PHENOL 1 EACH UD MM PRN (01:27)
[2018-05-18] MEDS ORDERED: IBUPROFEN 400 MG TABLET (FP) PO PRN (01:27)
[2018-05-18] MEDS ORDERED: ACETAMINOPHEN 325 MG TABLET (FP) PO PRN (01:27)
[2018-05-18] MEDS ORDERED: chlordiazePOXIDE HCL 25 MG CAPSULE PO PRN (01:27)
[2018-05-18] MEDS ORDERED: guaiFENesin/D-METHORPHAN HB 10 ML UNIT-DOSE CUPS PO PRN (01:27)
[2018-05-18] MEDS ORDERED: NICOTINE POLACRILEX 2 MG GUM BC PRN (01:27)
[2018-05-18] MEDS ORDERED: MAGNESIUM CITRATE 300 ML BOTTLE PO PRN (01:27)
[2018-05-18] MEDS ORDERED: hydrOXYzine PAMOATE 50 MG CAPSULE (FP) PO PRN (01:27)
[2018-05-18] MEDS ORDERED: P-EPHED 60MG/TRIPROLIDI 2.5MG TABLET PO PRN (01:27)
[2018-05-18] MEDS ORDERED: LOPERAMIDE HCL 2 MG CAPSULE PO PRN (01:27)
[2018-05-18] MEDS ORDERED: MAGNESIUM HYDROX 2400MG/30ML ORAL SUSPENSION 30 ML CUP PO PRN (01:27)
[2018-05-18] MEDS ORDERED: MAG HYDROX/AL HYDROX/SIMETH 30 ML UNIT-DOSE CUP PO PRN (01:27)
[2018-05-18] MEDS: chlordiazePOXIDE HCL 25 MG CAPSULE PO SCH ×4 (07:32→22:16)
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
--- NOTE | 2018-05-18 10:11 | PN ---
S CIWA - CIWA Score Nausea/Vomitin-Mild Nausea/No Vomiting Muscle Tremors: 3 Anxiety: 1-Mildly Anxious Agitation: 2 Paroxysmal Sweats: 1-Minimal Palms Moist Orientation: 1-Uncertain about Date Tacttile Disturbances: 0-None Auditory Disturbances: 0-None Visual Disturbances: 0-None Headache: 1-Very Mild CIWA-Ar Total Score: 10 B[facility] Progress Note (SOAP) Subjective: tremor sweating anxiety trouble with concentration Objective: 05/18/18 10:09 Vital Signs Temperature 98.2 F 05/18/18 09:13 Pulse Rate 75 05/18/18 09:13 Respiratory Rate 18 05/18/18 09:13 Blood Pressure 84/57 L 05/18/18 09:13 O2 Sat by Pulse Oximetry (%) lab pending Assessment: 05/18/18 10:10 alcohol withdrawal sx Plan: continue detox
[2018-05-18] MEDS: PRENATAL VITAMINS W/ FOLIC ACID TABLET (FP) PO SCH (10:25)
[2018-05-18] MEDS: NICOTINE 14 MG/24 HOURS TOPICAL PATCH TD SCH (10:26)
[2018-05-18 10:36] LABS: HEMATOCRIT 38.7 % (32.4-45.2); MCHC 33.5 g/dl (32.0-36.0); MEAN CELL VOLUME 83.7 fl (80-96); MEAN PLT VOLUME 8.9 fl (7.5-11.1); PLATELET COUNT 272 K/MM3 (134-434); RBC 4.62 M/mm3 (3.60-5.2); RDW 14.5 % (11.6-15.6); WHITE BLOOD COUNT 6.5 K/mm3 (4.0-10.0)
[2018-05-18 10:45] LABS: ALBUMIN 3.9 g/dl (3.4-5.0); ALK PHOS 61 U/L (45-117); ANION GAP 7 MMOL/L (8-16); BILIRUBIN,TOTAL 0.4 mg/dL (0.2-1); BLOOD UREA NITROGEN 19 mg/dL (7-18); CALCIUM 8.1 mg/dL (8.5-10.1); CHLORIDE 103 mmol/L (98-107); CO2 29 mmol/L (21-32); CREATININE 0.7 mg/dL (0.55-1.3); GLUCOSE,RANDOM 76 mg/dL (74-106); POTASSIUM 4.2 mmol/L (3.5-5.1); SGOT/AST 14 U/L (15-37); SGPT/ALT 17 U/L (13-61); SODIUM 139 mmol/L (136-145)
[2018-05-18] MEDS: THIAMINE HCL 100 MG TABLET (FP) PO SCH (22:16)
[2018-05-18] MEDS: MELATONIN 5 MG TABLETS PO PRN (22:16)
[2018-05-19] MEDS: chlordiazePOXIDE HCL 25 MG CAPSULE PO SCH ×4 (06:23→22:14)
[2018-05-19] MEDS: PRENATAL VITAMINS W/ FOLIC ACID TABLET (FP) PO SCH (10:26)
[2018-05-19] MEDS: NICOTINE 14 MG/24 HOURS TOPICAL PATCH TD SCH (10:26)
--- NOTE | 2018-05-19 16:36 | PN ---
S CIWA - CIWA Score Nausea/Vomitin-No Nausea/No Vomiting Muscle Tremors: None Anxiety: 4-Mod. Anxious/Guarded Agitation: 1-Slight > Activity Paroxysmal Sweats: 3 Orientation: 0-Oriented Tacttile Disturbances: 0-None Auditory Disturbances: 0-None Visual Disturbances: 2-Mild Sensitivity Headache: 0-None Present CIWA-Ar Total Score: 10 B[facility] Progress Note (SOAP) Subjective: Fatigue, Anxious, Sweating, Poor Appetite. Objective: PATIENT A & O X 3, OBSERVED AMBULATING ON UNIT. IN NO ACUTE DISTRESS. 05/19/18 16:35 Vital Signs Temperature 98.3 F 05/19/18 13:36 Pulse Rate 94 H 05/19/18 13:36 Respiratory Rate 20 05/19/18 13:36 Blood Pressure 89/63 L 05/19/18 13:36 O2 Sat by Pulse Oximetry (%) Laboratory Tests 05/18/18 05/18/18 05/18/18 07:00 07:00 07:00 WBC 6.5 RBC 4.62 Hgb 13.0 Hct 38.7 MCV 83.7 MCH 28.0 MCHC 33.5 RDW 14.5 Plt Count 272 MPV 8.9 Sodium 139 Potassium 4.2 Chloride 103 Carbon Dioxide 29 Anion Gap 7 L BUN 19 H Creatinine 0.7 Creat Clearance w eGFR > 60 Random Glucose 76 Calcium 8.1 L Total Bilirubin 0.4 AST 14 L ALT 17 Alkaline Phosphatase 61 Total Protein 7.0 Albumin 3.9 RPR Titer Nonreactive LABS NOTED. Assessment: 05/19/18 16:35 WITHDRAWAL SYMPTOMS. Plan: CONTINUE DETOX. INCREASE DAILY PO FLUID INTAKE. ENSURE BID FOR CALORIE SUPPLEMENTATION.
[2018-05-19] MEDS: THIAMINE HCL 100 MG TABLET (FP) PO SCH (22:14)
[2018-05-19] MEDS: MELATONIN 5 MG TABLETS PO PRN (22:14)
[2018-05-20] MEDS: chlordiazePOXIDE 5 MG CAPSULE PO SCH ×4 (06:50→22:15)
[2018-05-20] MEDS: PRENATAL VITAMINS W/ FOLIC ACID TABLET (FP) PO SCH (10:25)
[2018-05-20] MEDS: NICOTINE 14 MG/24 HOURS TOPICAL PATCH TD SCH (10:26)
--- NOTE | 2018-05-20 14:49 | PN ---
[facility] Progress Note (SOAP) Subjective: Sweating, Fatigue. Objective: PATIENT A & O X 3, OBSERVED AMBULATING ON UNIT. IN NO ACUTE DISTRESS. 05/20/18 14:50 Vital Signs Temperature 99 F 05/20/18 14:00 Pulse Rate 92 H 05/20/18 14:00 Respiratory Rate 18 05/20/18 14:00 Blood Pressure 89/61 L 05/20/18 14:00 O2 Sat by Pulse Oximetry (%) Laboratory Tests 05/18/18 05/18/18 05/18/18 07:00 07:00 07:00 WBC 6.5 RBC 4.62 Hgb 13.0 Hct 38.7 MCV 83.7 MCH 28.0 MCHC 33.5 RDW 14.5 Plt Count 272 MPV 8.9 Sodium 139 Potassium 4.2 Chloride 103 Carbon Dioxide 29 Anion Gap 7 L BUN 19 H Creatinine 0.7 Creat Clearance w eGFR > 60 Random Glucose 76 Calcium 8.1 L Total Bilirubin 0.4 AST 14 L ALT 17 Alkaline Phosphatase 61 Total Protein 7.0 Albumin 3.9 RPR Titer Nonreactive LABS NOTED. Assessment: 05/20/18 14:50 WITHDRAWAL SYMPTOMS. Plan: CONTINUE DETOX. INCREASE DAILY PO FLUID INTAKE.
[2018-05-20] MEDS: MELATONIN 5 MG TABLETS PO PRN (22:15)
[2018-05-20] MEDS: THIAMINE HCL 100 MG TABLET (FP) PO SCH (22:15)
[2018-05-21] MEDS ORDERED: chlordiazePOXIDE HCL 10 MG CAPSULE PO SCH (05:00)
[2018-05-21 09:27] VITALS: BP 90/65; PULSE 99; TEMP 97.4
--- NOTE | 2018-05-21 15:14 | DS ---
[facility] Detox Discharge Summary Admission Date: 05/18/18 Discharge Date: 05/21/18 - History Present History: Alcohol Dependence Additional Comments: 38 years old female admitted on 05/18/18 for alcohol withdrawal stabilization completed alcohol detox [facility] - Physical Exam Results Vital Signs: Vital Signs Temperature 97.4 F L 05/21/18 09:27 Pulse Rate 99 H 05/21/18 09:27 Respiratory Rate 16 05/21/18 09:27 Blood Pressure 90/65 05/21/18 09:27 O2 Sat by Pulse Oximetry (%) Pertinent Admission Physical Exam Findings: alcohol withdrawal sx Laboratory Last Values WBC 6.5 K/mm3 (4.0-10.0) 05/18/18 07:00 RBC 4.62 M/mm3 (3.60-5.2) 05/18/18 07:00 Hgb 13.0 GM/dL (10.7-15.3) 05/18/18 07:00 Hct 38.7 % (32.4-45.2) 05/18/18 07:00 MCV 83.7 fl (80-96) 05/18/18 07:00 MCH 28.0 pg (25.7-33.7) 05/18/18 07:00 MCHC 33.5 g/dl (32.0-36.0) 05/18/18 07:00 RDW 14.5 % (11.6-15.6) 05/18/18 07:00 Plt Count 272 K/MM3 (134-434) 05/18/18 07:00 MPV 8.9 fl (7.5-11.1) 05/18/18 07:00 Sodium 139 mmol/L (136-145) 05/18/18 07:00 Potassium 4.2 mmol/L (3.5-5.1) 05/18/18 07:00 Chloride 103 mmol/L (98-107) 05/18/18 07:00 Carbon Dioxide 29 mmol/L (21-32) 05/18/18 07:00 Anion Gap 7 MMOL/L (8-16) L 05/18/18 07:00 BUN 19 mg/dL (7-18) H 05/18/18 07:00 Creatinine 0.7 mg/dL (0.55-1.3) 05/18/18 07:00 Creat Clearance w eGFR > 60 (>60) 05/18/18 07:00 Random Glucose 76 mg/dL (74-106) 05/18/18 07:00 Calcium 8.1 mg/dL (8.5-10.1) L 05/18/18 07:00 Total Bilirubin 0.4 mg/dL (0.2-1) 05/18/18 07:00 AST 14 U/L (15-37) L 05/18/18 07:00 ALT 17 U/L (13-61) 05/18/18 07:00 Alkaline Phosphatase 61 U/L (45-117) 05/18/18 07:00 Total Protein 7.0 g/dl (6.4-8.2) 05/18/18 07:00 Albumin 3.9 g/dl (3.4-5.0) 05/18/18 07:00 RPR Titer Nonreactive (NONREACTIVE) 05/18/18 07:00 lab noted - Treatment Hospital Course: Detox Protocol Followed, Detoxed Safely, Responded well, Discharged Condition Good, Rehab Referral Accepted Patient has Accepted a Rehab Referral to: [facility] - Medication Discharge Medications: Ambulatory Orders Ranitidine [Zantac -] 150 mg PO DAILY 05/20/18 - Diagnosis (1) Alcohol dependence with uncomplicated withdrawal Status: Acute (2) Substance induced mood disorder Status: Suspected (3) Nicotine dependence Status: Acute Qualifiers: Nicotine product type: cigarettes Substance use status: in withdrawal Qualified Code(s): F17.213 - Nicotine dependence, cigarettes, with withdrawal - AMA Did Patient Leave Against Medical Advice: No
== END 2018-05-21 09:15 | disposition home or self-care (01) | DRG 774 ==
LOC: YASAS 01:00 → Y3N 01:29
PROVIDERS: ADMIT Neuromusculoskeletal Medicine & OMM; ATTEND Neuromusculoskeletal Medicine & OMM
PROC: HZ2ZZZZ Detoxification Services for Substance Abuse Treatment (ICD-10-PCS; principal; 2018-05-18)
DX: F10.230 Alcohol dependence with withdrawal, uncomplicated (principal); F14.10 Cocaine abuse, uncomplicated; F17.213 Nicotine dependence, cigarettes, with withdrawal; F19.24 Other psychoactive substance dependence with psychoactive substance-induced mood disorder; F19.282 Other psychoactive substance dependence with psychoactive substance-induced sleep disorder; F32.9 Major depressive disorder, single episode, unspecified; D64.9 Anemia, unspecified; R00.0 Tachycardia, unspecified; R63.8 Other symptoms and signs concerning food and fluid intake
CPT/HCPCS: 36415; 80053; 85027; 86593